=== PATIENT | male | born 1985 | race Caucasian/White ===

== ENCOUNTER 2019-09-23 01:54 | Inpatient (IN) | payer SELFPAY ==
[~2019-09-23] VITALS: Ht 175.3 cm; Wt 59.4 kg
[2019-09-23 02:10] LABS: BASOPHILS 0 % (0-2); EOSINOPHILS 0 % (0-7); HEMATOCRIT 36.4 % (42.0-54.0); HEMOGLOBIN 12.8 g/dL (13.5-17.5); IMMATURE GRANULOCYTES 0.4 % (0-5); LYMPHOCYTES 2.7 % (15-50); MCH 30.8 pg (26.0-34.0); MCHC 35.2 g/dL (31.0-37.0); MCV 87.7 fL (80.0-100.0); MEAN PLATELET VOLUME 9.9 fL (7.4-10.4); MONOCYTES 6.9 % (2-11); PLATELET COUNT 126 10x3/uL (130-400); RBC 4.15 10x6/uL (4.20-6.10); RDW 12.1 % (11.5-14.5)
[2019-09-23 02:22] LABS: CALC OSMOLALITY 280 mosm/kg (275-300); CALCIUM 7.2 mg/dL (8.5-10.1); CARBON DIOXIDE 21.2 mmol/L (21.0-32.0); CHLORIDE - SERUM 108 mmol/L (98-107); CREATININE - SERUM 0.7 mg/dL (0.6-1.3); GLUCOSE 106 mg/dL (74-106); SODIUM 140 mmol/L (136-145); UREA NITROGEN 19 mg/dL (7-18); eGFR NON AFRICAN AMERICAN > 90 mL/min (90-120)
[2019-09-23 02:24] LABS: APTT 45.8 SECONDS (22.8-39.4); INR 2.47 (0.85-1.17); PROTIME 26.1 SECONDS (11.6-15.0)
[2019-09-23 02:36] LABS: ALBUMIN 3.1 g/dL (3.4-5.0); ALKALINE PHOSPHATASE 45 U/L (46-116); ALT (SGPT) 20 U/L (10-68); BILIRUBIN - TOTAL 1.64 mg/dL (0.2-1.3); C-REACTIVE PROTEIN 4.8 mg/dL (0.0-0.9); CKMB 0.5 U/L (0.0-3.6); CREATINE KINASE 139 UL (21-232); PROTEIN - SERUM 5.6 g/dL (6.4-8.2)
[2019-09-23 02:37] LABS: TROPONIN-I < 0.017 ng/mL (0.000-0.060)
[2019-09-23 03:54] VITALS: BP 123/76; BMI 19.3
--- NOTE | 2019-09-23 04:07 | NUR ---
ADMITTED TO ROOM ALERT AND ORIENTIATED, REPORTS PAIN TO RIGHT ARM A LITTLE BETTER AFTER MORPHINE IN ER, RIGHT FORREARM NOTED TO BE RED AND SWOLLEN WITH SEVERAL SMALL SCALBED AREAS FRO CAT BITE, ALSO SCALBED AREAS NOTED TO LEFT HAND, SEE ASSESSMENT, ORIENTIATED TO ROOM CALL REZA ISAACS
[2019-09-23 04:33] LABS: APTT 33.6 SECONDS (22.8-39.4); INR 1.36 (0.85-1.17); PROTIME 16.2 SECONDS (11.6-15.0)
--- NOTE | 2019-09-23 08:23 | NUR ---
DR. MUNOZ @ BEDSIDE. RIGHT FOREARM SWOLLEN AND LIMITED ROM OF WRIST AND FINGERS. PT TAKEN TO EMERGENCY SURGERY VIA BED. PREOP ORDERS DID NOT COME THROUGH UNTIL AFTER PT HAD ALREADY LEFT DEPARTMENT. PTs WORK WAS CALLED TO INFORM OF PTs STATUS IN HOSPITAL AND REASON FOR MISSING WORK, PER PT REQUEST. PT GAVE VERBAL CONSENT FOR INFORMATION TO BE RELEASED. CONSENTS SIGNED AND PLACED IN CHART. JESSICA SANCHEZ PAGED TO INFORM OF PT STATUS. HAVE NOT RECIEVED AN ANSWER AT THIS TIME.
[2019-09-23 09:55] VITALS: BP 141/68
--- NOTE | 2019-09-23 09:59 | NUR ---
PT BACK FROM SURGERY VIA BED. VSS AT THIS TIME. RR EVEN AND UNLABORED. PT IN PAIN AND RECOVERY NURSE STATED SHE HAD JUST GIVEN PAIN MEDICATION AND DR IS AWARE OF CURRENT PAIN. PT STATES PAIN 8/10 IN RIGHT ARM. DRESSING NOTED TO RIGHT ARM. PT IS RESITNG, EYES CLOSED BUT EASILY AROUSABLE. IV INFUSING NS @ 75 TO RIGHT AC. DENIES FURTHER NEEDS AT THIS TIME. WILL CONTINUE TO MONITOR.
[2019-09-23 10:16] VITALS: Ht 175.3 cm; Wt 59.4 kg
--- NOTE | 2019-09-23 18:00 | NUR ---
RECEIVED TO ROOM 2205 VIA BED FROM [employer]. A/O X3. DRESSING TO RIGHT ARM DRY AND INTACT. MOVES DIGITS FREELY TO SAME. DENIES NEEDS.
[2019-09-23 18:28] LABS: APPEARANCE CLEAR (CLEAR); BILIRUBIN NEGATIVE (NEGATIVE); COLOR YELLOW (YELLOW); GLUCOSE NEGATIVE (NEGATIVE); KETONE SMALL mg/dL (NEGATIVE); NITRITE NEGATIVE (NEGATIVE); PROTEIN NEGATIVE (NEGATIVE); SPECIFIC GRAVITY 1.015 (1.005-1.020); UROBILINOGEN NORMAL (NORMAL)
--- NOTE | 2019-09-23 19:15 | NUR ---
PATIENT ALERT AND ORIENTED WHEN ENTERING THE ROOM. PATIENT HAS THEODORA WRAP TO THE RIGHT UPPER EXTREMETY. ARM IS WARM TO TOUCH AND PATIENT MOVES FNGERS WITH NO ISSUES. PATIENT HAS LEFT AC IV THAT IS PATENT WITH NO SIGNS OF SWELLING OR INFILTRATION NOTED AT THIS TIME. CURRENTLY INFUSING 1/2 NS @ 75. DENIES NEEDS AT THIS TIME. CALL LIGHT IN REACH OF PATIENT. CPOC.
[2019-09-23 20:00] VITALS: BP 138/81
[2019-09-23 23:57] VITALS: BP 126/79
--- NOTE | 2019-09-24 01:18 | NUR ---
RESTING WITH NO SIGNS OR SYMPTOMS OF DISTRESS AT THIS TIME. CALL LIGHT IN REACH. CPOC.
[2019-09-24 04:00] VITALS: BP 132/76
--- NOTE | 2019-09-24 04:22 | NUR ---
I have reviewed this patient and I concur with the Shift Assessment completed by the Licensed Practical Nurse today this shift.
[2019-09-24 04:51] LABS: BASOPHILS 0.1 % (0-2); EOSINOPHILS 0 % (0-7); HEMATOCRIT 40.8 % (42.0-54.0); HEMOGLOBIN 14.1 g/dL (13.5-17.5); IMMATURE GRANULOCYTES 0.6 % (0-5); LYMPHOCYTES 5.8 % (15-50); MCH 30.5 pg (26.0-34.0); MCHC 34.6 g/dL (31.0-37.0); MCV 88.1 fL (80.0-100.0); MEAN PLATELET VOLUME 10.6 fL (7.4-10.4); NEUTROPHILS 87.5 % (40-80); PLATELET COUNT 114 10x3/uL (130-400); RBC 4.63 10x6/uL (4.20-6.10); RDW 12.4 % (11.5-14.5); WBC 12.4 10x3/uL (4.8-10.8)
[2019-09-24 05:13] LABS: CALCIUM 8.5 mg/dL (8.5-10.1); CARBON DIOXIDE 25.8 mmol/L (21.0-32.0); CHLORIDE - SERUM 100 mmol/L (98-107); GLUCOSE 105 mg/dL (74-106); MAGNESIUM - SERUM 1.8 mg/dL (1.8-2.4); PHOSPHOROUS 2.1 mg/dL (2.5-4.9); SODIUM 135 mmol/L (136-145)
[2019-09-24 05:20] LABS: CALC OSMOLALITY 269 mosm/kg (275-300); CREATININE - SERUM 0.9 mg/dL (0.6-1.3); UREA NITROGEN 12 mg/dL (7-18); eGFR NON AFRICAN AMERICAN > 90 mL/min (90-120)
--- NOTE | 2019-09-24 07:30 | NUR ---
PT RESTING IN BED, RIGHT ARM PROPPED ON PILLOW. REDNESS NOTED TO TOP OF RIGHT HAND, WARM TO TOUCH. POSITIVE CAP REFILL ABLE TO MOVE FINGERS. PT DOES REPORT PAIN 3/10 AT THIS TIME. IV TO LEFT AC WITH 1/2 NS @ 50ML/HR INFUSING VIA PUMP. SITE WITHOUT REDNESS OR EDEMA. PT DENIES FURTHER NEEDS AT THIS TIME. CL WITHIN REACH. ENCOURAGED TO CALL WITH NEEDS. CONTINUE POC
[2019-09-24 07:49] VITALS: BP 124/71
--- NOTE | 2019-09-24 10:10 | NUR ---
DR. KELLOGG PRESENT, REMOVING DRESSING FROM RIGHT ARM. ORDERS RECIEVED TO DRESS WOUND. DON STERILE GLOVES. AREA CLEANED WITH SALINE. APPLIED SALINE SOAKED 4X4'S OVER AREA, COVERED WITH 4X4'S WRAPPED WITH KERLEX AND THEODORA. PT ANNE MARIE WELL. PT DENIES FURTHER NEEDS AT THIS TIME. CL WITHIN REACH.
[2019-09-24 12:00] VITALS: BP 121/76
[2019-09-24 16:11] VITALS: BP 121/89
--- NOTE | 2019-09-24 19:15 | NUR ---
PATIENT RESTING WITH EYES CLOSED WHEN ENTERING THE ROOM. PATIENT AROUSES TO VERBAL STIMULI. REQUESTS PAIN MEDICINE WHEN AVAILABLE. THE RIGHT FOREARM IS ELEVATED ON A PILLOW AND HOB IS ELEVATED TO A 20 DEGREE ANGLE. THE ARM IS WARM TO TOUCH WITH DRESSING AND THEODORA BANDAGE ADHERED TO THE INCISION SITE. PATIENT MOVES DIGITS WITH NO ISSUES AT THIS TIME BUT WINCES WHEN DOING SO. PATIENT DENIES FURTHER ISSUES AT THIS TIME. LEFT AC IV IS PATENT WITH NO REDNESS OR EDEMA NOTED TO THE INSERTION SITE. PATIENT HAS URINAL AT BEDSIDE. DENIES NEEDS AT THIS TIME. CALL LIGHT IN REACH OF PATIENT. CPOC.
[2019-09-24 20:00] VITALS: BP 138/78
--- NOTE | 2019-09-24 20:00 | NUR ---
SPOKE WITH PATIENT ABOUT ALTERNATING NORCO AND MORPHINE. PROVIDED EDUCATION ABOUT LASTING EFFECTS OF BOTH MEDICATIONS WELL HOW EACH METABOLIZES. PATIENT AGREED TO TRY ALTERNATING TO SEE IF IT HANDLES PAIN BETTER. DENIES FURTHER NEEDS AT THIS TIME.
[2019-09-25 04:00] VITALS: BP 126/72
--- NOTE | 2019-09-25 04:25 | NUR ---
DRESSING CHANGED PERFORMED PER ORDER
[2019-09-25 04:34] LABS: BASOPHILS 0.1 % (0-2); EOSINOPHILS 0.4 % (0-7); HEMATOCRIT 38.4 % (42.0-54.0); HEMOGLOBIN 13.2 g/dL (13.5-17.5); IMMATURE GRANULOCYTES 0.1 % (0-5); LYMPHOCYTES 7.2 % (15-50); MCH 30.4 pg (26.0-34.0); MCHC 34.4 g/dL (31.0-37.0); MCV 88.5 fL (80.0-100.0); MEAN PLATELET VOLUME 10.4 fL (7.4-10.4); MONOCYTES 6.4 % (2-11); NEUTROPHILS 85.8 % (40-80); PLATELET COUNT 121 10x3/uL (130-400); RBC 4.34 10x6/uL (4.20-6.10); RDW 12.1 % (11.5-14.5); WBC 9.7 10x3/uL (4.8-10.8)
[2019-09-25 04:52] LABS: ALBUMIN 2.7 g/dL (3.4-5.0); ALKALINE PHOSPHATASE 56 U/L (46-116); ALT (SGPT) 20 U/L (10-68); BILIRUBIN - TOTAL 1.48 mg/dL (0.2-1.3); CALC OSMOLALITY 268 mosm/kg (275-300); CALCIUM 8.9 mg/dL (8.5-10.1); CARBON DIOXIDE 26.9 mmol/L (21.0-32.0); CHLORIDE - SERUM 102 mmol/L (98-107); CREATININE - SERUM 0.7 mg/dL (0.6-1.3); GLUCOSE 107 mg/dL (74-106); POTASSIUM - SERUM 3.9 mmol/L (3.5-5.1); PROTEIN - SERUM 6.8 g/dL (6.4-8.2); SODIUM 135 mmol/L (136-145); UREA NITROGEN 11 mg/dL (7-18); eGFR NON AFRICAN AMERICAN > 90 mL/min (90-120)
--- NOTE | 2019-09-25 07:36 | NUR ---
ALERT AND ORIENTED. LUNGS CLEAR BILATERALLY. HEART SOUNDS S1 AND S2 HEARD IN ALL [place]. BOWEL SOUNDS ACTIVE X 4. DRSG C/D/I TO RIGHT ARM. IV TO LEFT AC PATENT WITHOUT REDNESS. DENIES NEEDS. BED LOW. CALL HERNANDEZ AND PERSONAL ITEMS IN REACH. WILL CONTINUE TO MONITOR.
[2019-09-25 07:43] VITALS: BP 141/76
--- NOTE | 2019-09-25 10:15 | NUR ---
RESTING IN BED. DENIES NEEDS. WILL CONTINUE TO MONITOR.
--- NOTE | 2019-09-25 12:00 | NUR ---
RESTING IN BED. DENIES NEEDS. WILL CONTINUE TO MONITOR.
[2019-09-25 12:48] VITALS: BP 130/78
--- NOTE | 2019-09-25 13:30 | NUR ---
DRSG CHANGED TO RFA PER ORDER. SITE WITHOUT S/SX INFECTION.
[2019-09-25 16:25] LABS: UDS - AMPHET NEGATIVE QUAL (NEGATIVE); UDS - BARB NEGATIVE QUAL (NEGATIVE); UDS - BENZO NEGATIVE QUAL (NEGATIVE); UDS - COCAINE NEGATIVE QUAL (NEGATIVE); UDS - OPIATE POSITIVE QUAL (NEGATIVE); UDS - PCP NEGATIVE QUAL (NEGATIVE); UDS - THC POSITIVE QUAL (NEGATIVE)
--- NOTE | 2019-09-25 16:46 | NUR ---
RESTING IN BED. DENIES NEEDS. WILL CONTINUE TO MONITOR.
[2019-09-25 16:47] VITALS: BP 120/70
--- NOTE | 2019-09-25 18:05 | NUR ---
RESTING IN BED. DENIES NEEDS. CALL HERNANDEZ AND PERSONAL ITEMS IN REACH.
[2019-09-25 20:11] VITALS: BP 124/72
[2019-09-26 00:15] VITALS: BP 116/74
--- NOTE | 2019-09-26 03:51 | NUR ---
dressing changed wet to dry thgis shift.
[2019-09-26 04:31] VITALS: BP 121/77
[2019-09-26 06:00] LABS: BASOPHILS 0.1 % (0-2); EOSINOPHILS 0.8 % (0-7); HEMOGLOBIN 12.5 g/dL (13.5-17.5); IMMATURE GRANULOCYTES 0.3 % (0-5); LYMPHOCYTES 11.1 % (15-50); MCH 30.7 pg (26.0-34.0); MCHC 34.7 g/dL (31.0-37.0); MCV 88.5 fL (80.0-100.0); MEAN PLATELET VOLUME 10.8 fL (7.4-10.4); MONOCYTES 8.1 % (2-11); NEUTROPHILS 79.6 % (40-80); RBC 4.07 10x6/uL (4.20-6.10); RDW 12.5 % (11.5-14.5); WBC 7.4 10x3/uL (4.8-10.8)
[2019-09-26 06:09] LABS: PLATELET COUNT 152 10x3/uL (130-400)
[2019-09-26 06:34] LABS: ALBUMIN 2.8 g/dL (3.4-5.0); ALKALINE PHOSPHATASE 61 U/L (46-116); ALT (SGPT) 17 U/L (10-68); BILIRUBIN - TOTAL 1.04 mg/dL (0.2-1.3); CALC OSMOLALITY 270 mosm/kg (275-300); CARBON DIOXIDE 26.2 mmol/L (21.0-32.0); CHLORIDE - SERUM 100 mmol/L (98-107); CREATININE - SERUM 0.6 mg/dL (0.6-1.3); GLUCOSE 97 mg/dL (74-106); POTASSIUM - SERUM 3.7 mmol/L (3.5-5.1); PROTEIN - SERUM 6.1 g/dL (6.4-8.2); SODIUM 136 mmol/L (136-145); UREA NITROGEN 10 mg/dL (7-18); eGFR NON AFRICAN AMERICAN > 90 mL/min (90-120)
[2019-09-26 07:28] VITALS: BP 127/83
--- NOTE | 2019-09-26 07:46 | NUR ---
ALERT AND ORIENTED. LUNGS CLEAR BILATERALLLY. HEART SOUNDS S1 AND S2 HEARD IN ALL [place]. BOWEL SOUNDS ACTIVE X 4. DRSG C/D/I TO RFA. IV PATENT TO LEFT AC. DENIES NEEDS. BED LOW. CALL HERNANDEZ AND PERSONAL ITEMS IN REACH. WILL CONTINUE TO MONITOR.
[2019-09-26 11:48] VITALS: BP 119/76
--- NOTE | 2019-09-26 12:51 | NUR ---
IV PULLED OUT TO LEFT AC. PATIENT EATING LUNCH. WILL RESITE AFTER LUNCH PER PATIENT REQUEST.
--- NOTE | 2019-09-26 14:06 | NUR ---
IV RESITED TO LFA AFTER ONE ATTEMPT WITH 22 GAUGE. DRSG CHANGED TO RFA PER ORDER WITH STERILE PROCEDURE. NO S/SX INFECTION NOTED. NO REDNESS TO SITE. STILL SWELLING TO RIGHT HAND.
[2019-09-26 20:54] VITALS: BP 125/80
--- NOTE | 2019-09-26 21:00 | NUR ---
ALERT RESTING IN BED, THEODORA WRAP DRESSING INTACT TO RIGHT FORE ARM, EDEMA AND REDNESS NOTED TO HAND, SEE SHIFT ASSESSMENT, CALL ,IGHT IN REACH
[2019-09-27 01:10] VITALS: BP 137/76
[2019-09-27 06:43] LABS: BASOPHILS 0.3 % (0-2); EOSINOPHILS 2.3 % (0-7); HEMATOCRIT 37.9 % (42.0-54.0); HEMOGLOBIN 13.1 g/dL (13.5-17.5); IMMATURE GRANULOCYTES 0.5 % (0-5); MCH 30.8 pg (26.0-34.0); MCHC 34.6 g/dL (31.0-37.0); MCV 89.2 fL (80.0-100.0); MEAN PLATELET VOLUME 9.7 fL (7.4-10.4); MONOCYTES 10.2 % (2-11); NEUTROPHILS 67.7 % (40-80); PLATELET COUNT 175 10x3/uL (130-400); RBC 4.25 10x6/uL (4.20-6.10); RDW 12.2 % (11.5-14.5); WBC 7.4 10x3/uL (4.8-10.8)
[2019-09-27 06:45] LABS: ALBUMIN 2.9 g/dL (3.4-5.0); ALKALINE PHOSPHATASE 57 U/L (46-116); BILIRUBIN - TOTAL 0.92 mg/dL (0.2-1.3); CALC OSMOLALITY 273 mosm/kg (275-300); CALCIUM 9.2 mg/dL (8.5-10.1); CARBON DIOXIDE 29.4 mmol/L (21.0-32.0); CHLORIDE - SERUM 100 mmol/L (98-107); CREATININE - SERUM 0.7 mg/dL (0.6-1.3); GLUCOSE 82 mg/dL (74-106); POTASSIUM - SERUM 3.7 mmol/L (3.5-5.1); PROTEIN - SERUM 7.4 g/dL (6.4-8.2); SODIUM 138 mmol/L (136-145); UREA NITROGEN 10 mg/dL (7-18); eGFR NON AFRICAN AMERICAN > 90 mL/min (90-120)
[2019-09-27 06:47] LABS: ALT (SGPT) 26 U/L (10-68)
--- NOTE | 2019-09-27 07:30 | NUR ---
REC'D IN BED AWAKE AND ALERT. RESP EVEN AND UNLABORED WITH NO DISTRESS NOTED. CAN EXPRESS NEEDS AND WANTS. NO C/O NOTED OR VOICED. ASSESSMENT COMPLETED. C/L IN REACH AT BEDSIDE
[2019-09-27 09:05] VITALS: BP 126/71
--- NOTE | 2019-09-27 09:20 | MORECARE ---
CASE MANAGEMENT DISCHARGE SUMMARY PATIENT: VICKIE WALTERS UNIT: [id number] ADM DATE: 09/23/19 AGE: 34 : 85 SEX: M ROOM/BED: D.2205 AUTHOR: LOBITODOC PHYSICIAN: REFERRING PHYSICIAN: HARRIS KELLY MD DATE OF SERVICE: 09/27/19 Discharge Plan Patient Name: VICKIE WALTERS Facility: [facility]:[place] : 1985 Planned Disposition: Home or Self Care Anticipated Discharge Date: Discharge Date: Expected LOS: Initial Reviewer: [email or web address] Initial Review Date: 09/23/2019 Generated: 09/27/19 10:20 am DCP- Discharge Planning Updated by [email or web address]: Oriana Marcus on 09/27/19 8:[address] Patient Name: VICKIE WALTERS Admission Status: ER Accout number: [id number] Admission Date: 09-23-2019 : 1985 Admission Diagnosis: Attending: HARRIS SOLITARIO Current LOS: 4 Anticipated DC Date: Planned Disposition: Home or Self Care Primary Insurance: UNINSURED DISCOUNT PLAN Discharge Planning Comments: CM met with patient to complete initial dc planning assessment. CM educated patient on the CM role and verbal consent given by patient to complete assessment. Patient lives at home where he is independent with his care. At discharge patient plans to return home and feels this is a safe discharge. CM discussed availability of home health, rehab services, and medical equipment. He does not have any insurance and does not have a PCP. I will give him healthy connections information. Patient denied known discharge needs at this time. His friend Mable will be his otr company driver home. CM will continue to follow and will assist as needed with dc plans/needs Gun Tester: Oriana Marcus DCPIA - Discharge Planning Initial Assessment Updated by [email or web address]: Oriana Marcus on 09/27/19 9:16 am * Is the patient Alert and Oriented? Yes * How many steps to enter\exit or inside your home? * PCP NONE * Pharmacy [facility] [address] * Preadmission Environment Home Alone * ADLs Independent * Equipment None * List name and contact numbers for known caregivers / representatives who currently or will assist patient after discharge: MABLE ([phone]) * Verbal permission to speak to the caregivers and representatives has been obtained from the patient. N/A * Community resources currently utilized None * Additional services required to return to the preadmission environment? No * Can the patient safely return to the preadmission environment? Yes * Has this patient been hospitalized within the prior 30 days at any hospital? No Patient Name: VICKIE WALTERS Page [id number] at 0920 All edits/amendments must be made on the electronic document DICTATION DATE: 09/27/19919 SINGLE NEEDLE TUFTING MACHINE OPERATOR: MARY 09/27/19919 RPT#: [id number] DC DATE: STATUS: ADM IN [facility] [address] [place] [address] END OF REPORT
--- NOTE | 2019-09-27 09:44 | NUR ---
C/O RIGHT ARM PAIN RATING 7/10 ON PAIN SCALE. MEDICATED WITH NORCO PER ORDERS. C/L IN REACH AT BEDSIDE.
--- NOTE | 2019-09-27 11:06 | NUR ---
NUTRITION F/U PT TOLERATING REG DIET, 50 TO 75% INTAKE RECENT MEALS. BM RECORDED 09/26. WILL CONTINUE TO HONOR FOOD PREFERENCES, MONITOR PO INTAKE. RD FOLLOWING
[2019-09-27 12:50] VITALS: BP 116/71
[2019-09-27 16:38] VITALS: BP 135/81
--- NOTE | 2019-09-27 18:38 | NUR ---
I have reviewed this patient and I concur with the Shift Assessment completed by the Licensed Practical Nurse today this shift.
[2019-09-27 19:30] VITALS: BP 127/67
--- NOTE | 2019-09-27 20:00 | NUR ---
ALERT RESTING IN BED, DENIES PAIN OR NEEDS AT THIS TIME, THEODORA WRAP DRESSING TO RIGHT ARM, C/D/I, SEE SHIFT ASSESSMENT, CALL LIGHT IN REACH
[2019-09-28 00:59] VITALS: BP 130/70
[2019-09-28 05:34] VITALS: BP 150/78
[2019-09-28 06:50] LABS: BASOPHILS 0.2 % (0-2); EOSINOPHILS 3.1 % (0-7); HEMATOCRIT 42.1 % (42.0-54.0); HEMOGLOBIN 14.7 g/dL (13.5-17.5); IMMATURE GRANULOCYTES 1.3 % (0-5); LYMPHOCYTES 19.2 % (15-50); MCH 31.1 pg (26.0-34.0); MCHC 34.9 g/dL (31.0-37.0); MCV 89.2 fL (80.0-100.0); MEAN PLATELET VOLUME 9.6 fL (7.4-10.4); MONOCYTES 10.7 % (2-11); NEUTROPHILS 65.5 % (40-80); PLATELET COUNT 181 10x3/uL (130-400); RBC 4.72 10x6/uL (4.20-6.10); RDW 12.2 % (11.5-14.5); WBC 6.1 10x3/uL (4.8-10.8)
[2019-09-28 07:14] LABS: ALBUMIN 3.1 g/dL (3.4-5.0); ALKALINE PHOSPHATASE 63 U/L (46-116); ALT (SGPT) 36 U/L (10-68); BILIRUBIN - TOTAL 0.66 mg/dL (0.2-1.3); CALC OSMOLALITY 270 mosm/kg (275-300); CALCIUM 8.9 mg/dL (8.5-10.1); CARBON DIOXIDE 25.5 mmol/L (21.0-32.0); CHLORIDE - SERUM 102 mmol/L (98-107); CREATININE - SERUM 0.8 mg/dL (0.6-1.3); GLUCOSE 86 mg/dL (74-106); POTASSIUM - SERUM 4.1 mmol/L (3.5-5.1); PROTEIN - SERUM 7.7 g/dL (6.4-8.2); SODIUM 136 mmol/L (136-145); UREA NITROGEN 13 mg/dL (7-18); eGFR NON AFRICAN AMERICAN > 90 mL/min (90-120)
[2019-09-28 08:49] VITALS: BP 133/73
--- NOTE | 2019-09-28 11:21 | NUR ---
Wound vac dressing applied to open wound on right arm. Wound measures 8.5cm x 3.5cm x 0.1cm. Center of wound is hypergranulated. Wound bed is red and beefy. There is no odor. One piece of white foam was placed over open wound bed and it was covered with a piece of black foam. Settings are -125mmhg low continuous. No tendon, muscle or bone is exposed. Hand and wrist are edematous, but pt states the swelling has "gone down". Pt tolerated well.
[2019-09-28 12:46] VITALS: BP 152/52
--- NOTE | 2019-09-28 13:12 | NUR ---
WOUND VAC PLACED TODAY AT DR REQUEST, ANNE MARIE WILCOX, PT STATES IT HURTS MORE WITH WOUND VAC IN PLACE, CONT TO MONITOR
--- NOTE | 2019-09-28 13:43 | NUR ---
OT NOTE: PT WITH WOUND VAC IN PLACE TODAY. APPEARS TO BE LESS EDEMATOUS TODAY. PT ABLE TO DEMONSTRATE ROM IN SHOULDER, ELBOW, WRIST, AND FINGERS. ELBOW IS IMPROVED FROM YESTERDAY. CONT TO EXHIBIT DECREASED WRIST FLEX/EXT AND FINGER FLEX/EXT..PT DEMONSTRATES PROM EXS WHICH HE REPORTS PERFORMING THROUGHOUT THE DAY. PT ABLE TO AMB AND PERFORM ADLS, HOWEVER, INCREASED DIFFICULTY DUE TO R HAND [place], OTR/L
[2019-09-28 17:03] VITALS: BP 121/73
--- NOTE | 2019-09-28 19:24 | NUR ---
PATIENT RESTING IN BED AND DENIES NEEDS AT THIS TIME. BED IN LOWEST POSITION AND CALL LIGHT WITHIN REACH. ENCOURAGED THE PATIENT TO CALL IF HE HAS NEEDS. WILL CONTINUE TO MONITOR.
[2019-09-28 20:00] VITALS: BP 139/72
[2019-09-29] VITALS: BP 106/70
[2019-09-29 04:00] VITALS: BP 128/77
[2019-09-29 06:30] LABS: BASOPHILS 0.5 % (0-2); EOSINOPHILS 3.2 % (0-7); HEMATOCRIT 41.4 % (42.0-54.0); HEMOGLOBIN 14.3 g/dL (13.5-17.5); MCH 30.8 pg (26.0-34.0); MCHC 34.5 g/dL (31.0-37.0); MCV 89.2 fL (80.0-100.0); MEAN PLATELET VOLUME 9.8 fL (7.4-10.4); MONOCYTES 12.1 % (2-11); NEUTROPHILS 56.2 % (40-80); RBC 4.64 10x6/uL (4.20-6.10); RDW 12.2 % (11.5-14.5)
[2019-09-29 06:49] LABS: PLATELET COUNT 237 10x3/uL (130-400)
[2019-09-29 06:53] LABS: ALBUMIN 3.3 g/dL (3.4-5.0); ALKALINE PHOSPHATASE 71 U/L (46-116); ALT (SGPT) 35 U/L (10-68); BILIRUBIN - TOTAL 0.53 mg/dL (0.2-1.3); CALC OSMOLALITY 279 mosm/kg (275-300); CALCIUM 8.9 mg/dL (8.5-10.1); CARBON DIOXIDE 26.1 mmol/L (21.0-32.0); CHLORIDE - SERUM 104 mmol/L (98-107); CREATININE - SERUM 0.8 mg/dL (0.6-1.3); GLUCOSE 90 mg/dL (74-106); POTASSIUM - SERUM 4.6 mmol/L (3.5-5.1); PROTEIN - SERUM 6.8 g/dL (6.4-8.2); SODIUM 140 mmol/L (136-145); UREA NITROGEN 16 mg/dL (7-18); eGFR NON AFRICAN AMERICAN > 90 mL/min (90-120)
--- NOTE | 2019-09-29 07:45 | NUR ---
PATIENT STATES IT HAS BEEN A "FEW DAYS" SINCE HE HAS HAD A BOWEL MOVEMENT. EXPRESSED CONCERN OVER REACHING THE BATHROOM WITH A WOUND VAC. TOLD HIM TO LET ME KNOW AND I WOULD BE MORE THAN HAPPY TO HELP. CL IN REACH. NO FURTHER NEEDS AT THIS TIME. LJ
[2019-09-29 08:00] VITALS: BP 130/81
--- NOTE | 2019-09-29 10:49 | NUR ---
PATIENT STATES "HE IS FINE" WHEN ASKED WHAT HIS PAIN LEVEL WAS. I ASKED IF I HAD WOKEN HIM HE ANSWERED YES. CL IN REACH. NO FURTHER NEEDS AT THIS TIME. LJ
[2019-09-29 12:00] VITALS: BP 127/72
--- NOTE | 2019-09-29 15:07 | NUR ---
OT NOTE: PT COMPLETED RUE ROM EXS. PT COMPLETED POSITIONING WITH SBA. PT COMPLETED UE AROM EX. THANK YOU,KHOI MENDOSA
[2019-09-29 17:04] VITALS: BP 123/69
--- NOTE | 2019-09-29 17:23 | NUR ---
PATIENT STATES HE IS DOING OK. FRIEND IN ROOM. CL IN REACH. NO FURTHER NEEDS AT THIS TIME. WCTM
[2019-09-29 20:00] VITALS: BP 118/66
[2019-09-30] VITALS: BP 124/71
[2019-09-30 04:00] VITALS: BP 130/78
[2019-09-30 06:34] LABS: BASOPHILS 0.4 % (0-2); EOSINOPHILS 2.9 % (0-7); HEMATOCRIT 42.4 % (42.0-54.0); HEMOGLOBIN 14.7 g/dL (13.5-17.5); MCH 30.8 pg (26.0-34.0); MCHC 34.7 g/dL (31.0-37.0); MCV 88.9 fL (80.0-100.0); MEAN PLATELET VOLUME 9.5 fL (7.4-10.4); MONOCYTES 9.5 % (2-11); NEUTROPHILS 51.2 % (40-80); PLATELET COUNT 268 10x3/uL (130-400); RBC 4.77 10x6/uL (4.20-6.10); WBC 5.5 10x3/uL (4.8-10.8)
[2019-09-30 06:44] LABS: CALC OSMOLALITY 278 mosm/kg (275-300); CALCIUM 8.8 mg/dL (8.5-10.1); CARBON DIOXIDE 28.7 mmol/L (21.0-32.0); CHLORIDE - SERUM 102 mmol/L (98-107); CREATININE - SERUM 0.8 mg/dL (0.6-1.3); GLUCOSE 88 mg/dL (74-106); POTASSIUM - SERUM 4.1 mmol/L (3.5-5.1); SODIUM 140 mmol/L (136-145); UREA NITROGEN 14 mg/dL (7-18); eGFR NON AFRICAN AMERICAN > 90 mL/min (90-120)
--- NOTE | 2019-09-30 08:40 | NUR ---
PATIENT SITTING UP IN BED. AWAKE WATCHING [employer] MUSIC VIDEOS. NO NEEDS AT THIS TIME. CL IN REACH. WCTM
[2019-09-30 09:02] VITALS: BP 132/79
[2019-09-30] MEDS ORDERED: AUGMENTIN 875-11 TAB PO (12:43)
[2019-09-30 13:25] VITALS: BP 121/76
--- NOTE | 2019-09-30 13:51 | NUR ---
Vac dressing changed today. Wound has improved. Measurements are 8.5cm x 2.3c x 0.1cm. Wound bed is beefy red with small amount of serous drainage and has no odor. White sponge applied directly on wound bed, covered with black foam. -125mmhg low continuous. Vac Via is being sent home with pt. It includes 2 more dressing changes which will be done in outpt services on 10/04 and 10/07. When pt returns on 10/11 the vac will be d/c'd. Instructions given on Vac Via , function, alarms, how to change canister. Pt voiced understanding.
--- NOTE | 2019-09-30 14:56 | MORECARE ---
CASE MANAGEMENT DISCHARGE SUMMARY PATIENT: VICKIE WALTERS UNIT: [id number] ADM DATE: 09/23/19 AGE: 34 : 85 SEX: M ROOM/BED: D.2205 AUTHOR: LOBITODOC PHYSICIAN: REFERRING PHYSICIAN: HARRIS KELLY MD DATE OF SERVICE: 09/30/19 Discharge Plan Patient Name: VICKIE WALTERS Facility: [facility]:[place] : 1985 Planned Disposition: Home or Self Care Anticipated Discharge Date: Discharge Date: Expected LOS: Initial Reviewer: [email or web address] Initial Review Date: 09/23/2019 Generated: 09/30/19 3:55 pm Comments DCP- Discharge Planning Updated by [email or web address]: Oriana Marcus on 09/30/19 1:[address] PATIENT DISCHARGING HOME TODAY. HE WILL COME BACK TO ADMISSIONS ON 10/04 BEFORE NOON FOR HIS WOUND VAC CHANGE AND RABIES VACCINE ON MED SURG FLOOR THEN WILL COME ON 10/07 TO HAVE WOUND VAC THROUGH OPS AND THE LAST APPOINTMENT WILL BE 10/11 FOR WOUND VAC DISCOUNTINE AND RABIES VACCINE THROUGH OPS. CM TO FOLLOW AND ASSIST NEEDED DEDRA WITH WOUND CARE HAS GONE OVER WITH PATIENT ON WHAT HE IS TO BRING TO HIS APPOINTMENT DCP- Discharge Planning Updated by [email or web address]: Oriana Marcus on 09/27/19 8:[address] Patient Name: VICKIE WALTERS Admission Status: ER Accout number: [id number] Admission Date: 09-23-2019 : 1985 Admission Diagnosis: Attending: HARRIS SOLITARIO Current LOS: 4 Anticipated DC Date: Planned Disposition: Home or Self Care Primary Insurance: UNINSURED DISCOUNT PLAN Discharge Planning Comments: CM met with patient to complete initial dc planning assessment. CM educated patient on the CM role and verbal consent given by patient to complete assessment. Patient lives at home where he is independent with his care. At discharge patient plans to return home and feels this is a safe discharge. CM discussed availability of home health, rehab services, and medical equipment. He does not have any insurance and does not have a PCP. I will give him healthy connections information. Patient denied known discharge needs at this time. His friend Mable will be his straddle truck driver home. CM will continue to follow and will assist as needed with dc plans/needs Manager Competitive Intelligence: Oriana Marcus DCPIA - Discharge Planning Initial Assessment Updated by [email or web address]: Oriana Marcus on 09/27/19 9:16 am * Is the patient Alert and Oriented? Yes * How many steps to enter\exit or inside your home? * PCP NONE * Pharmacy [facility] [address] * Preadmission Environment Home Alone * ADLs Independent * Equipment None * List name and contact numbers for known caregivers / representatives who currently or will assist patient after discharge: MABLE ([phone]) * Verbal permission to speak to the caregivers and representatives has been obtained from the patient. N/A * Community resources currently utilized None * Additional services required to return to the preadmission environment? No * Can the patient safely return to the preadmission environment? Yes * Has this patient been hospitalized within the prior 30 days at any hospital? No Last DP export: 09/27/19 8:20 Patient Name: VICKIE WALTERS Page [id number] at 1456 All edits/amendments must be made on the electronic document DICTATION DATE: 09/30/191454 BLENDER: MARY 09/30/191454 RPT#: [id number] DC DATE: STATUS: ADM IN [facility] [address] [place] [address] END OF REPORT
--- NOTE | 2019-09-30 15:43 | NUR ---
IV THERAPY REMOVED FROM LEFT FOREARM WITH TIP INTACT. VERBALIZED UNDERSTANDING OF DISCHARGE INSTRUCTIONS. CALLED DR TANNER TO SEE WHETHER OR NOT HE NEEDED PAIN MEDICATION. HE STATED "TYLENOL OR IBUPROFEN" WOULD DO WELL FOR HIM. REFUSES WHEEL CHAIR OUT FRONT.
[2019-09-30 17:08] LABS: AEROBE ID Final report (())
--- NOTE | 2019-10-03 12:19 | MORECARE ---
CASE MANAGEMENT DISCHARGE SUMMARY PATIENT: VICKIE WALTERS UNIT: [id number] ADM DATE: 09/23/19 AGE: 34 : 85 SEX: M ROOM/BED: D.2205 AUTHOR: LOBITODOC PHYSICIAN: REFERRING PHYSICIAN: HARRIS KELLY MD DATE OF SERVICE: 10/03/19 Discharge Plan Patient Name: VICKIE WALTERS Facility: [facility]:[place] : 1985 Planned Disposition: Home or Self Care Anticipated Discharge Date: Discharge Date: 09/30/2019 Expected LOS: Initial Reviewer: [email or web address] Initial Review Date: 09/23/2019 Generated: 10/03/19 1:19 pm Comments DCP- Discharge Planning Updated by [email or web address]: Oriana Marcus on 09/30/19 1:[address] PATIENT DISCHARGING HOME TODAY. HE WILL COME BACK TO ADMISSIONS ON 10/04 BEFORE NOON FOR HIS WOUND VAC CHANGE AND RABIES VACCINE ON MED SURG FLOOR THEN WILL COME ON 10/07 TO HAVE WOUND VAC THROUGH OPS AND THE LAST APPOINTMENT WILL BE 10/11 FOR WOUND VAC DISCOUNTINE AND RABIES VACCINE THROUGH OPS. CM TO FOLLOW AND ASSIST NEEDED DEDRA WITH WOUND CARE HAS GONE OVER WITH PATIENT ON WHAT HE IS TO BRING TO HIS APPOINTMENT DCP- Discharge Planning Updated by [email or web address]: Oriana Marcus on 09/27/19 8:[address] Patient Name: VICKIE WALTERS Admission Status: ER Accout number: [id number] Admission Date: 09-23-2019 : 1985 Admission Diagnosis: Attending: HARRIS SOLITARIO Current LOS: 4 Anticipated DC Date: Planned Disposition: Home or Self Care Primary Insurance: UNINSURED DISCOUNT PLAN Discharge Planning Comments: CM met with patient to complete initial dc planning assessment. CM educated patient on the CM role and verbal consent given by patient to complete assessment. Patient lives at home where he is independent with his care. At discharge patient plans to return home and feels this is a safe discharge. CM discussed availability of home health, rehab services, and medical equipment. He does not have any insurance and does not have a PCP. I will give him healthy connections information. Patient denied known discharge needs at this time. His friend Mable will be his package car driver home. CM will continue to follow and will assist as needed with dc plans/needs Metallographic Technician: Oriana Marcus DCPIA - Discharge Planning Initial Assessment Updated by [email or web address]: Oriana Marcus on 09/27/19 9:16 am * Is the patient Alert and Oriented? Yes * How many steps to enter\exit or inside your home? * PCP NONE * Pharmacy [facility] [address] * Preadmission Environment Home Alone * ADLs Independent * Equipment None * List name and contact numbers for known caregivers / representatives who currently or will assist patient after discharge: MABLE ([phone]) * Verbal permission to speak to the caregivers and representatives has been obtained from the patient. N/A * Community resources currently utilized None * Additional services required to return to the preadmission environment? No * Can the patient safely return to the preadmission environment? Yes * Has this patient been hospitalized within the prior 30 days at any hospital? No Last DP export: 09/30/19 1:56 Patient Name: VICKIE WALTERS Page [phone] at 1219 All edits/amendments must be made on the electronic document DICTATION DATE: 10/03/191218 WIRE WHEELER: MARY 10/03/19 121 RPT#: [id number] DC DATE:09/30/19 STATUS: DIS IN [facility] [address] [place] [address] END OF REPORT
== END 2019-09-30 16:02 | disposition home or self-care (01) | DRG 853 ==
LOC: D.ER 01:54 → D.M3 02:18 → D.MS 18:09
PROVIDERS: Emergency Medicine; Family Medicine; Internal Medicine Nephrology; Orthopaedic Surgery; ADMIT Family Medicine; ATTEND Family Medicine
PROC: 0KN90ZZ Release Right Lower Arm and Wrist Muscle, Open Approach (ICD-10-PCS; principal; 2019-09-23 08:30)
DX: A41.9 Sepsis, unspecified organism (principal); D65 Disseminated intravascular coagulation [defibrination syndrome]; M79.A11 Nontraumatic compartment syndrome of right upper extremity; E87.1 Hypo-osmolality and hyponatremia; M65.9 Synovitis and tenosynovitis, unspecified; W55.01XA Bitten by cat, initial encounter; D47.3 Essential (hemorrhagic) thrombocythemia; L03.011 Cellulitis of right finger; B96.89 Other specified bacterial agents as the cause of diseases classified elsewhere

== ENCOUNTER 2019-10-04 09:45 | Outpatient (CLI) | payer SELFPAY ==
[~2019-10-04] VITALS: Ht 175.3 cm; Wt 56.8 kg
[~2019-10-04 09:45] MED LIST: AUGMENTIN 875-11 TAB PO
--- NOTE | 2019-10-04 10:30 | NUR ---
PRESENTS FOR OUTPATIENT WOUND VAC CHANGE TO RIGHT FOREARM. DRESSING IS DRY AND INTACT. OLD DRESSING REMOVED. LARGE CAT EYE SHAPED WOUND, BED IS RED AND BEEFY LOOKING. VERAFOAM DRESSING PLACED IN THIS WOUND BED ALONG WITH SMALL BLACK FOAM TO PLACE BUTTON ON. DATED. TOELRATED WELL. NO LEAKS SEEN WHEN CONNECTED TO PORTABLE WOUND VAC.
[2019-10-04 11:20] VITALS: Ht 175.3 cm; Wt 56.8 kg
== END 2019-10-04 11:28 | disposition home or self-care (01) ==
LOC: D.OPS 09:45 → D.MS 09:51 → D.OPS 11:28
PROVIDERS: ATTEND Internal Medicine Nephrology
DX: L03.90 Cellulitis, unspecified (principal); M65.9 Synovitis and tenosynovitis, unspecified

== ENCOUNTER 2019-10-07 09:59 | Outpatient (CLI) | payer SELFPAY ==
[~2019-10-07] VITALS: Ht 175.3 cm; Wt 63.6 kg
--- NOTE | 2019-10-07 11:01 | NUR ---
WOUND IS HEALING. WOUND VAC D/C'D. PT WILL CONTINUE WITH DRESSING CHANGES (WET TO DRY WITH SALINE) X 4 DAYS AND THEN WILL JUST COVER WITH ADAPTIC AND SECURE IN PLACE WITH KERLIX UNTIL F/U APPOINTMENT WITH DR. SUAREZ ON 10/18/18. 7.5CM X 3CM X 0.02CM RED BEEFY WOUND BED. NO DRAINAGE, NO ODOR. INSTRUCTIONS PROVIDED FOR HOME DRESSING CHANGES. PT VOICED HIS UNDERSTANDING.
[2019-10-07 11:15] VITALS: Ht 175.3 cm; Wt 63.6 kg
--- NOTE | 2019-10-07 11:26 | NUR ---
1100-WOUND CARE NURSE HERE FOR DRESSING CHANGE. WOUND VAC D/C DUE TO WOUND HEALING. PATIENT IS INSTRUCTED TO DO WET TO DRY DRESSING CHANGES DAILY UNTIL RETURN APPT WITH DR SUAREZ. VERBALIZES UNDERSTANDING AND SUPPLIES PROVIDED BY WOUND CARE NURSE. 1120-D/C HOME AMBULATORY.
== END 2019-10-07 11:20 | disposition home or self-care (01) ==
LOC: D.OPS 09:59
PROVIDERS: ATTEND Internal Medicine Nephrology
DX: L03.90 Cellulitis, unspecified (principal); M65.9 Synovitis and tenosynovitis, unspecified